=== PATIENT | female | born 1995 | race Caucasian/White ===

== ENCOUNTER → 2019-06-06 08:39 | Outpatient (CLI) | payer OTHER, SELFPAY ==
--- NOTE | 2019-06-06 08:41 | DI.US.S_ITS ---
PROCEDURE: US OB FOLLOW UP INDICATIONS: FOLLOW UP LEFT DILATED PELVIS OUTSIDE/PRIOR DATING DATA: Last menstrual period (LMP): 10/28/2018. LMP-based estimated date of delivery (JOSIANE): 08/04/2019. First dating scan (date and location): [facility]. Estimated date of delivery (JOSIANE) from first dating scan: 08/04/2019? TECHNIQUE: Real-time scanning was performed of the fetus, with image documentation and biometric measurements. COMPARISON: None available. FINDINGS: General: A single living intrauterine gestation is present. Presentation: Cephalic. Placenta: Placental position is anterior, without previa. Amniotic fluid index: 17.4 cm, normal range is 5-24 cm. Largest pocket 5.6 cm. heart rate: 153 beats per minute. Maternal cervical canal: Not well seen. Estimated gestational age from initial scan: 31 weeks 4 days. Composite gestational age from present scan: Not applicable. Measurement variability for biometric dating: +/- 7 days from 14 weeks to 15 weeks 6 days gestation, +/- 10 days from 16 weeks to 21 weeks 6 days gestation, +/- 2 weeks from 22 weeks to 27 weeks 6 days gestation, +/- 3 weeks for 28 weeks gestation or later. weight reference: 4500 g or EFW >90/95% is considered macrosomia or large for gestational age. EFW <10% is small for gestational age. EFW 5% or less is considered intra-uterine growth restriction. Other: Normal four-chamber heart view. The stomach is normal. Right kidney measures 4.3 cm. Right renal pelvis measurers 0.4 cm. Left kidney measures 4.1 cm. Left renal pelvis measurers 0.9 cm. Question of a trace right hydrocele. urinary bladder is unremarkable. IMPRESSION: 1. Reed living intrauterine at 31 weeks 4 days based on prior dating. 2. Normal placenta. Amniotic fluid within normal limits. 3. Left pelviectasis measuring 9 mm. Prior exams not available for comparison. Recommend renal ultrasound. 4. Question of a trace right hydrocele. This could also be followed postnatally. Dictated by: Brad Donahue M.D. on 06/06/2019 at 11:05 Approved by: Brad Donahue M.D. on 06/06/2019 at 11:22
== END ==
PROVIDERS: Referring Provider Obstetrics & Gynecology; Visit Provider Obstetrics & Gynecology
DX: O28.3 Abnormal ultrasonic finding on antenatal screening of mother (principal); N28.89 Other specified disorders of kidney and ureter; Z3A.31 31 weeks gestation of pregnancy
CPT/HCPCS: 76816

== ENCOUNTER 2019-06-24 08:53 | Inpatient (IN) | payer OTHER, SELFPAY ==
[2019-06-24 09:35] LABS: Add Manual Diff / Slide Review NO; Basophils Absolute Auto 0 /uL (0-100); Basophils Percent Auto 0.4 % (0-2); Eosinophils Absolute Auto 100 /uL (0-450); Eosinophils Percent Auto 1.3 % (2-4); Hematocrit 32.9 % (36-46); Hemoglobin 10.8 g/dL (12.0-16.0); Lymphocytes Absolute Auto 2500 /uL (1100-4500); Lymphocytes Percent Auto 26.2 % (25-40); Mean Corpuscular HGB Conc 32.7 % (30-36); Mean Corpuscular Hemoglobin 29.1 PG (26-34); Mean Corpuscular Volume 88.9 fL (80-100); Monocytes Absolute Auto 600 /uL (0-900); Monocytes Percent Auto 6.7 % (3-14); Neutrophils Absolute Auto 6200 /uL (1500-7000); Neutrophils Percent Auto 65.4 % (50-75); Platelet Count 181 X10^3/uL (150-400); Red Cell Distribution Width 14.4 % (11.6-14.8); White Blood Cell Count 9.5 X10^3/uL (4.5-11.0)
[2019-06-24 09:40] LABS: Appearance Urine UA CLEAR; Bilirubin Urine UA NEGATIVE (NEGATIVE); Color Urine UA YELLOW; Glucose Urine UA NEGATIVE (Negative); Ketones Urine UA NEGATIVE (NEGATIVE); Leukocyte Esterase Urine UA 2+ (NEGATIVE); Nitrite Urine UA NEGATIVE (Negative); Occult Blood Urine UA NEGATIVE (Negative); Protein Urine UA NEGATIVE (Negative); Urobilinogen Urine UA 0.2 E.U./dL (0.2)
[2019-06-24 09:52] LABS: Bacteria Urine Many (>30); Culture Indicated Urine Specimen Cultured; RBC Urine 0-1/HPF (0-5/HPF); Squamous Epithelial Cell Urine 1-5 /HPF (0-5/HPF); WBC Urine 5-10/HPF (0-5/HPF); pH Urine UA 6.5 (4.5-8.0)
[2019-06-24 09:54] LABS: Aspartate Aminotransferase 28 IU/L (14-36); Estimated Glomerular Filt Rate > 60.0 mL/min (>60)
[2019-06-24 10:01] LABS: Uric Acid 3.1 mg/dL (2.5-6.2)
[2019-06-24 10:05] LABS: Creatinine Urine Random 84.1 mg/dL; Protein (Total) Urine Random 14 mg/dL (0-12); Protein Creatinine Ratio Urine 0.16 GRAM/24H
[2019-06-24 10:09] LABS: BUN Creatinine Ratio 4.8 (6-22); Blood Urea Nitrogen < 2 mg/dL (7-17)
[2019-06-24] MEDS: NIFEdipine 10 MG CAPSULE PO ×4 (10:18→11:19)
[2019-06-24] MEDS: cephALEXin 250 MG CAPSULE 500 MG PO (11:46)
--- NOTE | 2019-06-24 13:11 | PM.OBHP.1 ---
OB HPI Date/Time Date of admission: 06/24/19 Date Patient Seen: 06/24/19 Time Patient Seen: 13:11 History of Present Condition Chief complaint: maternity : 1 Para: 0 Estimated Gestational Age (weeks): 34 Narrative: Mariella Lutz is a 23 year old @34+1 by 1st trimester ultrasound, admitted to labor and delivery in early labor and with new onset hypertension. The patient presented to clinic this morning for her scheduled visit reporting dramatically increased lower extremity swelling over the past several days, but denying LEO, visual changes, upper extremity or facial swelling, NEERAJ or abdominal pain, or any other complaints. She reported normal movement, denied contractions, VB, or LOF, and denied any other complaints obstetrical or otherwise. Her BPs were elevated at 132/90 on repeat checks, and she was transferred to labor and delivery. The patient transferred care from the [facility] to [facility] in her 31st week, but she and records indicate an obstetrically uncomplicated up to that point. ultrasound has indicated left sided pelviectasis, which was to be followed up . 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 History of Present care: good care Dating criteria: LMP confirmed by 1st trimester US Ultrasounds: abnormal US findings ( left renal pelviectasis, 9mm. ) Abnormal ultrasound findings: renal pelviectasis Obstetrical complications: none Medical complications: none Preadmission Labs Blood type: A (+) positive -: Antibody screen: negative, HBsAG: negative, HIV: negative and RPR/VDLR: negative -: Chlamydia screen: not detected and Gonorrhea screen: not detected -: Rubella: immune and Varicella: immune Sequential screen: negative 1 hr GTT: 134 Evaluation Evaluation Baseline heart rate: 135 Variability: Average (6-10) monitor accelerations: Present monitor decelerations: Absent Contraction Frequency (minutes): 3 Uterine Contraction Intensity: Moderate Category of Tracing: I Cervical dilation (cm): 2 Cervical effacement (%): 75 station: -3 Laboratory results: Laboratory Tests 06/24/19 06/24/19 06/24/19 09:15 09:15 09:25 WBC 9.5 RBC 3.70 L Hgb 10.8 L Hct 32.9 L MCV 88.9 MCH 29.1 MCHC 32.7 RDW 14.4 Plt Count 181 Neut % (Auto) 65.4 Lymph % (Auto) 26.2 [place] % (Auto) 6.7 Eos % (Auto) 1.3 L Baso % (Auto) 0.4 Neut # (Auto) 6200 Lymph # (Auto) 2500 [place] # (Auto) 600 Eos # (Auto) 100 Baso # (Auto) 0 BUN < 2 L Creatinine 0.42 L Estimated GFR > 60.0 BUN/Creatinine Ratio 4.8 L Uric Acid 3.1 AST 28 Urine Color Yellow Urine Appearance Clear Urine pH 6.5 Ur Specific [place] 1.020 Urine Protein Negative Urine Glucose (UA) Negative Urine Ketones Negative Urine Occult Blood Negative Urine Nitrate Negative Urine Bilirubin Negative Urine Urobilinogen 0.2 Ur Leukocyte Esterase 2+ H Urine RBC 0-1/hpf Urine WBC 5-10/hpf H Ur Squamous Epith Cells 1-5 /hpf Urine Bacteria Many (>30) H Ur Culture Indicated? Specimen cultured U Random Total Protein Urine Creatinine Protein/Creatinin Ratio 06/24/19 09:25 WBC RBC Hgb Hct MCV MCH MCHC RDW Plt Count Neut % (Auto) Lymph % (Auto) [place] % (Auto) Eos % (Auto) Baso % (Auto) Neut # (Auto) Lymph # (Auto) [place] # (Auto) Eos # (Auto) Baso # (Auto) BUN Creatinine Estimated GFR BUN/Creatinine Ratio Uric Acid AST Urine Color Urine Appearance Urine pH Ur Specific [place] Urine Protein Urine Glucose (UA) Urine Ketones Urine Occult Blood Urine Nitrate Urine Bilirubin Urine Urobilinogen Ur Leukocyte Esterase Urine RBC Urine WBC Ur Squamous Epith Cells Urine Bacteria Ur Culture Indicated? 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 Smoking Status: Never smoker second hand exposure: No substance use type: does not use (Denies 12/23/2018) Meds Home Medications and Allergies Home Medications Medication Instructions Recorded Confirmed Type loratadine 10 mg tablet 10 mg PO DAILY 06/03/19 06/03/19 History ondansetron HCl 4 mg tablet 4 mg PO Q8H 06/03/19 06/03/19 History prenat.vits,lisette,lqp-tebp-ojzsy 1 tab PO DAILY 06/03/19 06/03/19 History Allergies Allergy/AdvReac Type Severity Reaction Status Date / Time No Known Drug Allergies Allergy Verified 06/03/19 11:46 Review of Systems Constitutional Constitutional: Reports system reviewed and no additional complaints, except as documented Cardiovascular Cardiovascular: Reports system reviewed; no additional complaints, except as documented Respiratory Respiratory: Reports system reviewed and no additional complaints, except as documented Gastrointestinal Gastrointestinal: Reports system reviewed and no additional complaints, except as documented Genitourinary Genitourinary: Reports system reviewed and no additional complaints, except as documented Neurologic Neurologic: Reports system reviewed and no additional complaints, except as documented Hematologic/Lymphatic Hematologic/Lymphatic: Reports system reviewed and no additional complaints, except as documented Exam Vital Signs (past 8 hours): 139/94, HR 72, T 36.4 Const General: cooperative, healthy appearing, comfortable and well developed Resp Effort & Inspection: normal respiratory effort Auscultation: clear to auscultation bilaterally Cardio Rate: regular rate Rhythm: regular rhythm GI Palpation: soft and No tender External Female Exam: external appearance normal Skin General: no rashes or lesions noted Neuro General: alert, awake and oriented x3 Cranial Nerves: CN's II-XI intact bilaterally Extrem General: normal to inspection Objective Labs Result Diagrams: 06/24/19 09:15 06/24/19 09:15 Labs: Laboratory Results - last 24 hr 06/24/19 06/24/19 06/24/19 09:15 09:15 09:25 WBC 9.5 RBC 3.70 L Hgb 10.8 L Hct 32.9 L MCV 88.9 MCH 29.1 MCHC 32.7 RDW 14.4 Plt Count 181 Neut % (Auto) 65.4 Lymph % (Auto) 26.2 [place] % (Auto) 6.7 Eos % (Auto) 1.3 L Baso % (Auto) 0.4 Neut # (Auto) 6200 Lymph # (Auto) 2500 [place] # (Auto) 600 Eos # (Auto) 100 Baso # (Auto) 0 BUN < 2 L Creatinine 0.42 L Estimated GFR > 60.0 BUN/Creatinine Ratio 4.8 L Uric Acid 3.1 AST 28 Urine Color Yellow Urine Appearance Clear Urine pH 6.5 Ur Specific [place] 1.020 Urine Protein Negative Urine Glucose (UA) Negative Urine Ketones Negative Urine Occult Blood Negative Urine Nitrate Negative Urine Bilirubin Negative Urine Urobilinogen 0.2 Ur Leukocyte Esterase 2+ H Urine RBC 0-1/hpf Urine WBC 5-10/hpf H Ur Squamous Epith Cells 1-5 /hpf Urine Bacteria Many (>30) H Ur Culture Indicated? Specimen cultured U Random Total Protein Urine Creatinine Protein/Creatinin Ratio 06/24/19 09:25 WBC RBC Hgb Hct MCV MCH MCHC RDW Plt Count Neut % (Auto) Lymph % (Auto) [place] % (Auto) Eos % (Auto) Baso % (Auto) Neut # (Auto) Lymph # (Auto) [place] # (Auto) Eos # (Auto) Baso # (Auto) BUN Creatinine Estimated GFR BUN/Creatinine Ratio Uric Acid AST Urine Color Urine Appearance Urine pH Ur Specific [place] Urine Protein Urine Glucose (UA) Urine Ketones Urine Occult Blood Urine Nitrate Urine Bilirubin Urine Urobilinogen Ur Leukocyte Esterase Urine RBC Urine WBC Ur Squamous Epith Cells Urine Bacteria Ur Culture Indicated? U Random Total Protein 14 H Urine Creatinine 84.1 Protein/Creatinin Ratio 0.16 Assessment and Plan Assessment and Plan Assessment and Plan narrative: This patient is admitted to labor and delivery with new onset hypertension and labor. On admission to L&D, she was found to be asymptomatically jenn q1-2 with an SVE 1/long/high at that time, with BPs 140s-150s/90s. PIH labs were within normal limits except for evidence of UTI. The patient was given PO hydration and 10mg PO nifedipine q 20 minutes x4 doses for contractions, and contractions stopped transiently and then resumed q2-3. Blood pressure initially normalized, but returned to 140s-150s/90s with resumption of contractions, and a repeat SVE was 2.5/75/-3 with a palpable bulging bag. status is reassuring and the patient remains asymptomatic, and will be prepared for expeditious transfer to the [facility] L&D for NICU access. - IVF @ 75ccs/hr - cEFM, toco until time of ground transfer - 12mg IM betamethasone administered - GBS PCR pending - Patient s/p 40mg PO nifedipine, as well as 500mg PO Keflex
[2019-06-24] MEDS: BETAMETHASONE 30 MG/5 ML MDV 12 MG IM (13:28)
[2019-06-24 14:25] LABS: Strep Grp B PCR POS for Grp B Strep
[2019-06-24] MEDS: LACTATED RINGERS 1,000 ML 150 ML IV (14:31)
[2019-06-24 14:59] VITALS: BP 145/96
== END 2019-06-24 15:00 | disposition home or self-care (01) | DRG 832 ==
PROVIDERS: Admitting Provider Obstetrics & Gynecology; Referring Provider Obstetrics & Gynecology; Visit Provider Obstetrics & Gynecology
DX: O60.03 Preterm labor without delivery, third trimester (principal); O16.3 Unspecified maternal hypertension, third trimester; R93.89 Abnormal findings on diagnostic imaging of other specified body structures
CPT/HCPCS: 36415; 59025; 59050; 76815; 81001; 82570; 84112; 84156; 84450; 84550; 85025; 87086; 87653; 96360; 96372; G0378; G0379; J0702

== ENCOUNTER → 2021-08-22 12:08 | Outpatient (CLI) | payer OTHER, SELFPAY ==
[2021-08-22 13:08] LABS: Influenza A - CEPHEID Flu A NEGATIVE (NEGATIVE); Influenza B - CEPHEID Flu B NEGATIVE (NEGATIVE)
[2021-08-22 13:17] LABS: COVID-19 CEPHEID PCR (VTM/NP) Negative (Negative)
== END ==
PROVIDERS: PCP Physician Assistant; Visit Provider Physician Assistant
DX: R11.10 Vomiting, unspecified (principal)
CPT/HCPCS: 0240U

== ENCOUNTER → 2021-12-09 14:00 | Outpatient (CLI) | payer OTHER, SELFPAY ==
--- NOTE | 2021-12-09 14:01 | DI.US.S_ITS ---
PROCEDURE: US OB >= 14 WEEKS FETUS INDICATIONS: Dating and possible anatomy OUTSIDE/PRIOR DATING DATA: Last menstrual period (LMP): Not of a. LMP-based estimated date of delivery (JOSIANE): Nodular. First dating scan (date and location): 12/09/2021; [facility]. Estimated date of delivery (JOSIANE) from first dating scan: 04/06/2022. TECHNIQUE: Real-time scanning was performed of the fetus, with image documentation and biometric measurements. Endovaginal scanning: Not performed. COMPARISON: None. FINDINGS: General: A single living intrauterine gestation is present. Presentation: breech. Placenta: Placental position is anterior , without previa. Amniotic fluid index: 15.8 cm, normal range is 5-24 cm. Single deepest vertical pocket is 4.3 cm. heart rate: 152 beats per minute. Maternal cervical canal: 3 point cm long. Normal lower limit is 2.5 cm. biometrics: Biparietal diameter: 22 weeks 4 days Head circumference: 23 weeks 2 days Abdominal circumference: 23 weeks 4 days Femur length: 22 weeks 3 days Clinically estimated gestational age: Not available. Composite gestational age from present scan: 23 weeks 1 day Estimated weight and percentile: 580 g; percentile not available. Anatomic survey: Neuro: Ventricles are non-dilated at less than 10 mm. Cisterna magna is normal at 3-11 mm. Cerebellum is normal in size and morphology. Nuchal skin fold: Normal at less than 6 mm between 14-21 weeks gestational age. Face: Nose and lips, facial profile are normal. Spine: No evidence for spina bifida. Heart: 4-chambered heart is present, with normal ventricular outflow tracts. Diaphragm: Diaphragm is intact. Stomach: Left-sided stomach is present. Kidneys: No hydronephrosis. Normal is less than 5 mm in 2nd trimester, less than 7 mm in 3rd trimester. Cord: 3-vessel cord has orthotopic insertion. Bladder: Normal in size. Extremities: All 4 extremities identified. IMPRESSION: 1. A single living intrauterine gestation with an estimated gestational age of 23 weeks 1 day corresponding to an estimated JOSIANE 04/06/2022. 2. Normal anatomic survey. We strive to produce accurate, complete, and clear reports of imaging services. To assist us in improving patient care, this report was composed using standard report templates and voice recognition software. Therefore, it may contain abnormal punctuation, insertions and/or omissions. Occasional wrong-word or sound-alike substitutions may occur. Though we review the report and make efforts to correct it, we do recommend that the report be read carefully in proper context to recognize any text inaccuracies. Dictated by: Gladis Andrews M.D. on 12/09/2021 at 17:34 Approved by: Gladis Andrews M.D. on 12/09/2021 at 18:58
== END ==
PROVIDERS: Referring Provider Obstetrics & Gynecology; Visit Provider Obstetrics & Gynecology
DX: Z34.82 Encounter for supervision of other normal pregnancy, second trimester (principal); Z3A.23 23 weeks gestation of pregnancy
CPT/HCPCS: 76811

== ENCOUNTER → 2021-12-24 15:54 | Outpatient (CLI) | payer OTHER, SELFPAY ==
[2021-12-24 22:08] LABS: Urine N gonorrhoeae NOT DETECTED
[2021-12-24 22:25] LABS: Urine Chlamydia NOT DETECTED
== END ==
PROVIDERS: Visit Provider Obstetrics & Gynecology
DX: Z34.82 Encounter for supervision of other normal pregnancy, second trimester (principal); Z3A.24 24 weeks gestation of pregnancy
CPT/HCPCS: 87491; 87591

== ENCOUNTER → 2021-12-30 16:13 | Outpatient (CLI) | payer OTHER, SELFPAY ==
[2021-12-30 18:29] LABS: Add Manual Diff / Slide Review NO; Basophils Absolute Auto 0 /uL (0-100); Basophils Percent Auto 0.2 % (0-2); Eosinophils Absolute Auto 0 /uL (0-450); Eosinophils Percent Auto 0.4 % (2-4); Hematocrit 32.2 % (36-46); Lymphocytes Absolute Auto 2300 /uL (1100-4500); Lymphocytes Percent Auto 21.4 % (25-40); Mean Corpuscular HGB Conc 34.1 % (30-36); Mean Corpuscular Hemoglobin 28.8 PG (26-34); Mean Corpuscular Volume 84.4 fL (80-100); Monocytes Absolute Auto 600 /uL (0-900); Monocytes Percent Auto 5.1 % (3-14); Neutrophils Absolute Auto 7900 /uL (1500-7000); Neutrophils Percent Auto 72.9 % (50-75); Platelet Count 249 X10^3/uL (150-400); Red Blood Cell Count 3.81 X10^6/uL (4.0-5.2); Red Cell Distribution Width 14.6 % (11.6-14.8); White Blood Cell Count 10.9 X10^3/uL (4.5-11.0)
[2021-12-30 18:58] LABS: Appearance Urine UA CLEAR; Bilirubin Urine UA NEGATIVE (NEGATIVE); Color Urine UA YELLOW; Glucose Urine UA NEGATIVE (Negative); Ketones Urine UA 1+ (NEGATIVE); Leukocyte Esterase Urine UA TRACE (NEGATIVE); Nitrite Urine UA NEGATIVE (Negative); Occult Blood Urine UA NEGATIVE (Negative); Protein Urine UA TRACE (Negative); Specific Gravity Urine UA 1.015 (1.000-1.035); Urobilinogen Urine UA 0.2 E.U./dL (0.2)
[2021-12-30 19:10] LABS: Bacteria Urine Moderate (10-30); RBC Urine None Seen (0-5/HPF); Squamous Epithelial Cell Urine 10-30 /HPF (0-5/HPF); WBC Urine 5-10/HPF (0-5/HPF)
[2021-12-30 20:11] LABS: HIV 1 & 2 Ab/Ag 4th Gen Combo NEGATIVE (NEGATIVE); Hep C Virus Ab w/Reflex Quant NEGATIVE s/c (NEGATIVE); Hepatitis B Surface Antigen NEGATIVE s/c (NEGATIVE); Rubella Antibody IgG 56.5 IU/mL (>15)
[2022-01-01 05:33] LABS: RPR Screen Non Reactive (Non Reactive)
[2022-01-01 09:09] LABS: Varicella IgG Antibody 978 index (Immune >165)
== END ==
PROVIDERS: Referring Provider Obstetrics & Gynecology; Visit Provider Obstetrics & Gynecology
DX: Z34.82 Encounter for supervision of other normal pregnancy, second trimester (principal)
CPT/HCPCS: 36415; 80055; 81003; 81015; 86787; 86803; 86850; 86900; 86901; 87086; 87389

== ENCOUNTER → 2022-01-10 15:36 | Outpatient (CLI) | payer OTHER, SELFPAY ==
[2022-01-10 17:33] LABS: Hematocrit 31.8 % (36-46); Hemoglobin 10.5 g/dL (12.0-16.0)
[2022-01-10 17:47] LABS: Alanine Aminotransferase 17 IU/L (<35); Albumin 3.7 g/dL (3.5-5.0); Alkaline Phosphatase 110 U/L (38-126); Aspartate Aminotransferase 23 IU/L (14-36); Bilirubin Total 1.3 mg/dL (0.2-1.3); Bilirubin Unconjugated 1.3 mg/dL (0.0-1.1); GTT (PREG) 1 Hour PP 50gm Dose 102 mg/dL (76-139); Globulin 3.6 g/dL (1.7-4.1); HEMOLYSIS < 15 (0-50); Total Protein 7.3 g/dL (6.3-8.2); Uric Acid 3.3 mg/dL (2.5-6.2)
[2022-01-10 17:50] LABS: Protein (Total) Urine Random < 5 mg/dL (0-12); Protein Creatinine Ratio Urine 0.02 GRAM/24H
== END ==
PROVIDERS: Referring Provider Obstetrics & Gynecology; Visit Provider Obstetrics & Gynecology
DX: O09.299 Supervision of pregnancy with other poor reproductive or obstetric history, unspecified trimester (principal); Z3A.26 26 weeks gestation of pregnancy
CPT/HCPCS: 36415; 80076; 82570; 82950; 84156; 84550; 85014; 85018

== ENCOUNTER 2022-01-28 19:14 | Observation (INO) | payer OTHER, SELFPAY ==
--- NOTE | 2022-01-28 19:49 | DI.US.S_ITS ---
PROCEDURE: US OB LIMITED INDICATIONS: PTL OUTSIDE/PRIOR DATING DATA: Last menstrual period (LMP): Unknown. First dating scan (date and location): 12/09/2021. Estimated date of delivery (JOSIANE) from first dating scan: 04/06/2022. The calculations are made using the ultrasound JOSIANE of 04/06/2022. TECHNIQUE: Real-time scanning was performed of the fetus, with image documentation and biometric measurements. COMPARISON: , US, OB >= 14 WEEKS FETUS, 12/09/2021, 14:14. FINDINGS: General: A single living intrauterine gestation is present. Presentation: Vertex. Placenta: Placental position is anterior , without previa. Amniotic fluid index: 17.7 cm, normal range is 5-24 cm. Single deepest vertical pocket is 7.1 cm. heart rate: 155 beats per minute. Maternal cervical canal: 4.2 cm long. Normal lower limit is 2.5 cm. No endocervical fluid or evidence of funneling. biometrics: Biparietal diameter: 7.2 cm, 29 weeks 0 days Head circumference: 28.0 cm, 30 weeks 5 days Abdominal circumference: 27.1 cm, 31 weeks 2 days Femur length: 5.9 cm, 30 weeks 6 days Clinically estimated gestational age: 30 weeks 2 days Composite gestational age from present scan: 30 weeks 3 days Estimated weight and percentile: 1659 g, 59th percentile IMPRESSION: 1. Single living intrauterine demonstrating appropriate interval growth with estimated weight at the 59th percentile. 2. Cervix appears closed and normal in length without evidence of endocervical fluid or funneling. We strive to produce accurate, complete, and clear reports of imaging services. To assist us in improving patient care, this report was composed using standard report templates and voice recognition software. Therefore, it may contain abnormal punctuation, insertions and/or omissions. Occasional wrong-word or sound-alike substitutions may occur. Though we review the report and make efforts to correct it, we do recommend that the report be read carefully in proper context to recognize any text inaccuracies. Dictated by: Manish Duran M.D. on 01/28/2022 at 22:52 Approved by: Manish Duran M.D. on 01/28/2022 at 22:55
[2022-01-28] MEDS: NIFEdipine 30 MG TAB ER PO (20:47)
[2022-01-28] MEDS: LACTATED RINGERS 1,000 ML 1000 ML IV (20:47)
[2022-01-28] MEDS: NIFEdipine 10 MG CAPSULE PO ×3 (20:47→21:36)
[2022-01-28 20:51] LABS: Appearance Urine UA CLEAR; Bilirubin Urine UA NEGATIVE (NEGATIVE); Color Urine UA YELLOW; Glucose Urine UA TRACE g/dL (Negative); Ketones Urine UA 3+ (NEGATIVE); Leukocyte Esterase Urine UA NEGATIVE (NEGATIVE); Nitrite Urine UA NEGATIVE (Negative); Occult Blood Urine UA NEGATIVE (Negative); Protein Urine UA 2+ (Negative); Urobilinogen Urine UA 0.2 E.U./dL (0.2)
[2022-01-28 20:53] LABS: pH Urine UA 6.5 (4.5-8.0)
[2022-01-28 21:03] VITALS: BP 118/64
[2022-01-28 21:08] LABS: Bacteria Urine Moderate (10-30); Culture Indicated Urine Specimen Cultured; Mucus Urine 2+ (Negative); RBC Urine 1-5/HPF (0-5/HPF); Squamous Epithelial Cell Urine 5-10 /HPF (0-5/HPF); WBC Urine 1-5/HPF (0-5/HPF)
[2022-01-28] MEDS: CALCIUM CARBONATE 500 MG TAB 1000 MG PO (21:12)
== END 2022-01-28 22:30 | disposition home or self-care (01) ==
PROVIDERS: Admitting Provider Obstetrics & Gynecology; Referring Provider Obstetrics & Gynecology; Visit Provider Obstetrics & Gynecology
DX: O60.03 Preterm labor without delivery, third trimester (principal); Z3A.30 30 weeks gestation of pregnancy
CPT/HCPCS: 59025; 59050; 76815; 81001; 87086; 96360; G0378; G0379

== ENCOUNTER 2022-02-01 20:53 | Outpatient (CLI) | payer OTHER, SELFPAY ==
[2022-02-01] MEDS: ACETAMINOPHEN 325 MG TABLET 1000 MG PO (21:16)
--- NOTE | 2022-02-23 22:05 | PM.OBTRLD ---
Visit Information Visit Information Date of evaluation: 02/01/22 Primary OB Provider: Lazaro Wills On-call OB Provider: Stacia Liu Reason for Evaluation: Yes non-stress test non-stress test reason: decreased movement [facility] Medical History (Updated 02/12/22 @ 15:53 by Lazaro Wills MD) PCOS (polycystic ovarian syndrome) (~2009) Surgical History (Updated 12/31/21 @ 07:53 by Lazaro Wills MD) [place] teeth extracted Family History (Updated 12/19/21 @ 15:50 by Katia Galdamez RN) Grandfather Diabetes mellitus Grandmother Diabetes mellitus Mother Myocardial infarction Hypoglycemia Family/Other Breast cancer Social History marital status: number of children: 1 household members: spouse and children lives independently: Yes housing: house pets and animals: Yes (2 dogs) education level: college (some college) 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: No 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 travel history: recent (domestic only) seatbelt use: always water heater temp set < 120 deg: Yes working smoke detector in home: Yes fire extinguisher in home: Yes carbon monox detector in home: Yes firearms in home: Yes firearms unloaded and locked: Yes do you feel safe at home: Yes Smoking Status: Never smoker second hand exposure: No alcohol intake: former (rarely when not ) substance use type: does not use during the past year weight has: remained stable well-balanced diet: rarely or never daily servings fruits/ve-1 caffeine: Yes (aware of 200mg limit) Type(s) of exercise: none Evaluation Evaluation Baseline heart rate: 140 Variability: Moderate (11-25) monitor accelerations: Present Monitor Decelerations: Absent Category of Tracing: Reactive Diagnosis, Plan/Disposition Plan/Disposition Plan: Assessment: 26-year-old 2 para 1 at 30-,6/7 weeks gestation with decreased movement Reactive nonstress test Plan: Discharge to home kick counts discussed Follow-up as scheduled OB Disposition: home
== END 2022-02-01 21:45 | disposition home or self-care (01) ==
LOC: OB 02-06 16:07
PROVIDERS: Referring Provider Obstetrics & Gynecology; Visit Provider Obstetrics & Gynecology
DX: O36.8130 Decreased fetal movements, third trimester, not applicable or unspecified (principal); Z3A.30 30 weeks gestation of pregnancy
CPT/HCPCS: 59025; G0378; G0379

== ENCOUNTER → 2022-02-26 16:43 | Outpatient (CLI) | payer OTHER, SELFPAY ==
[2022-02-26 17:19] LABS: Add Manual Diff / Slide Review NO; Basophils Absolute Auto 0 /uL (0-100); Basophils Percent Auto 0.4 % (0-2); Eosinophils Absolute Auto 0 /uL (0-450); Eosinophils Percent Auto 0.4 % (2-4); Hematocrit 31.8 % (36-46); Hemoglobin 10.3 g/dL (12.0-16.0); Lymphocytes Absolute Auto 1800 /uL (1100-4500); Lymphocytes Percent Auto 17.1 % (25-40); Mean Corpuscular HGB Conc 32.4 % (30-36); Mean Corpuscular Hemoglobin 25.8 PG (26-34); Mean Corpuscular Volume 79.9 fL (80-100); Monocytes Absolute Auto 800 /uL (0-900); Monocytes Percent Auto 7.5 % (3-14); Neutrophils Absolute Auto 8000 /uL (1500-7000); Neutrophils Percent Auto 74.6 % (50-75); Platelet Count 263 X10^3/uL (150-400); Red Blood Cell Count 3.98 X10^6/uL (4.0-5.2); White Blood Cell Count 10.7 X10^3/uL (4.5-11.0)
[2022-02-26 17:40] LABS: Creatinine Urine Random 194.1 mg/dL; Protein (Total) Urine Random 22 mg/dL (0-12); Protein Creatinine Ratio Urine 0.11 GRAM/24H
[2022-02-26 17:56] LABS: Alanine Aminotransferase 18 IU/L (<35); Albumin 3.5 g/dL (3.5-5.0); Alkaline Phosphatase 160 U/L (38-126); Aspartate Aminotransferase 21 IU/L (14-36); Bilirubin Total 1.4 mg/dL (0.2-1.3); Bilirubin Unconjugated 1.1 mg/dL (0.0-1.1); Globulin 3.4 g/dL (1.7-4.1); HEMOLYSIS < 15 (0-50); Total Protein 6.9 g/dL (6.3-8.2); Uric Acid 2.8 mg/dL (2.5-6.2)
== END ==
PROVIDERS: Referring Provider Obstetrics & Gynecology; Visit Provider Obstetrics & Gynecology
DX: O09.299 Supervision of pregnancy with other poor reproductive or obstetric history, unspecified trimester (principal)
CPT/HCPCS: 36415; 80076; 82570; 84156; 84550; 85025

== ENCOUNTER 2022-02-26 16:45 | Observation (INO) | payer OTHER, SELFPAY ==
[2022-02-26] MEDS: NIFEdipine 30 MG TAB ER PO (18:15)
--- NOTE | 2022-02-27 07:42 | P.TNLD_ITS ---
Visit Information Visit Information Date of evaluation: 02/26/22 Primary OB Provider: Lazaro Wills Reason for Evaluation: Yes non-stress test Comments/Additional reasons for admission: 26 yo at 34+3 wks EGA Vital Signs Vital Signs: BP: 115/71 P: 107 T: 36.9C PFSH Medical History (Updated 02/12/22 @ 15:53 by Lazaro Wills MD) PCOS (polycystic ovarian syndrome) (~2009) Surgical History (Updated 12/31/21 @ 07:53 by Lazaro Wills MD) [place] teeth extracted Family History (Updated 12/19/21 @ 15:50 by Katia Galdamez RN) Grandfather Diabetes mellitus Grandmother Diabetes mellitus Mother Myocardial infarction Hypoglycemia Family/Other Breast cancer Social History marital status: number of children: 1 household members: spouse and children lives independently: Yes housing: house pets and animals: Yes (2 dogs) education level: college (some college) 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: No 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 travel history: recent (domestic only) seatbelt use: always water heater temp set < 120 deg: Yes working smoke detector in home: Yes fire extinguisher in home: Yes carbon monox detector in home: Yes firearms in home: Yes firearms unloaded and locked: Yes do you feel safe at home: Yes Smoking Status: Never smoker second hand exposure: No alcohol intake: former (rarely when not ) substance use type: does not use during the past year weight has: remained stable well-balanced diet: rarely or never daily servings fruits/ve-1 caffeine: Yes (aware of 200mg limit) Type(s) of exercise: none Review of Systems Review of Systems Narrative: Problem-specific ROS positives included in HPI Evaluation Evaluation Baseline heart rate: 140 Variability: Average (6-10) monitor accelerations: Present Monitor Decelerations: Absent Contraction Frequency (minutes): 3 Uterine Contraction Intensity: Mild Category of Tracing: Reactive Status: Category l Cervical dilation (cm): 0 Cervical effacement (%): 50 station: -3 Diagnosis, Plan/Disposition Plan/Disposition Plan: All labs normal/negative. Patient will be placed at [facility], note to employer provided Close observation for elevated BP, sign/symptoms of elevated BP reviewed Continue daily and PRN nifedipine for uterine irritability Follow-up for [facility] visit in 1 wk or as needed OB Disposition: home
== END 2022-02-26 18:18 | disposition home or self-care (01) ==
LOC: LABOR 16:46
PROVIDERS: Admitting Provider Obstetrics & Gynecology; Referring Provider Obstetrics & Gynecology; Visit Provider Obstetrics & Gynecology
DX: O16.3 Unspecified maternal hypertension, third trimester (principal); Z3A.34 34 weeks gestation of pregnancy
CPT/HCPCS: 36415; 59025; 80076; 82570; 84156; 84550; 85025; G0378; G0379

== ENCOUNTER → 2022-03-07 16:38 | Outpatient (CLI) | payer OTHER, SELFPAY ==
[2022-03-08 15:31] LABS: Strep Grp B PCR POS for Grp B Strep
== END ==
PROVIDERS: Visit Provider Obstetrics & Gynecology
DX: Z36.85 Encounter for antenatal screening for Streptococcus B (principal); Z3A.35 35 weeks gestation of pregnancy
CPT/HCPCS: 87653

== ENCOUNTER → 2022-03-14 17:05 | Outpatient (CLI) | payer OTHER, SELFPAY ==
[2022-03-14 18:01] LABS: Add Manual Diff / Slide Review NO; Basophils Absolute Auto 0 /uL (0-100); Basophils Percent Auto 0.2 % (0-2); Eosinophils Absolute Auto 0 /uL (0-450); Eosinophils Percent Auto 0.4 % (2-4); Hematocrit 29.4 % (36-46); Hemoglobin 9.5 g/dL (12.0-16.0); Lymphocytes Absolute Auto 2100 /uL (1100-4500); Lymphocytes Percent Auto 18.2 % (25-40); Mean Corpuscular HGB Conc 32.3 % (30-36); Mean Corpuscular Hemoglobin 25.2 PG (26-34); Mean Corpuscular Volume 78.1 fL (80-100); Monocytes Absolute Auto 600 /uL (0-900); Monocytes Percent Auto 5.4 % (3-14); Neutrophils Absolute Auto 8800 /uL (1500-7000); Neutrophils Percent Auto 75.8 % (50-75); Platelet Count 200 X10^3/uL (150-400); Red Blood Cell Count 3.76 X10^6/uL (4.0-5.2); Red Cell Distribution Width 17.3 % (11.6-14.8); White Blood Cell Count 11.6 X10^3/uL (4.5-11.0)
[2022-03-14 19:28] LABS: Alanine Aminotransferase 17 IU/L (<35); Albumin 3.2 g/dL (3.5-5.0); Alkaline Phosphatase 183 U/L (38-126); Aspartate Aminotransferase 21 IU/L (14-36); BUN Creatinine Ratio 11.4 (6-22); Bilirubin Total 1.5 mg/dL (0.2-1.3); Blood Urea Nitrogen 5 mg/dL (7-17); Calcium 8.8 mg/dL (8.4-10.2); Carbon Dioxide 22 mmol/L (22-32); Chloride 102 mmol/L (98-107); Estimated Glomerular Filt Rate > 60 mL/min (>60); Globulin 3.1 g/dL (1.7-4.1); Glucose 81 mg/dL (70-100); HEMOLYSIS < 15 (0-50); Potassium 4.2 mmol/L (3.4-5.1); Sodium 133 mmol/L (137-145); Total Protein 6.3 g/dL (6.3-8.2); Uric Acid 3.2 mg/dL (2.5-6.2)
== END ==
PROVIDERS: Referring Provider Obstetrics & Gynecology; Visit Provider Obstetrics & Gynecology
DX: O09.299 Supervision of pregnancy with other poor reproductive or obstetric history, unspecified trimester (principal)
CPT/HCPCS: 36415; 80053; 84550; 85025

== ENCOUNTER 2022-03-16 18:44 | Outpatient (CLI) | payer OTHER, SELFPAY ==
[2022-03-16 20:07] LABS: Creatinine Urine Random 142.5 mg/dL; Protein (Total) Urine Random 34 mg/dL (0-12); Protein Creatinine Ratio Urine 0.23 GRAM/24H
== END 2022-03-16 20:33 | disposition home or self-care (01) ==
LOC: LABOR 18:49 → OB 03-17 10:37
PROVIDERS: Obstetrics & Gynecology; Referring Provider Obstetrics & Gynecology; Visit Provider Obstetrics & Gynecology
DX: O26.893 Other specified pregnancy related conditions, third trimester (principal); R03.0 Elevated blood-pressure reading, without diagnosis of hypertension; Z3A.37 37 weeks gestation of pregnancy
CPT/HCPCS: 59025; 82570; 84156; G0378; G0379

== ENCOUNTER 2022-03-19 14:59 | Inpatient (IN) | payer OTHER, SELFPAY ==
[2022-03-19] MEDS: LACTATED RINGERS 1,000 ML 999 ML IV (15:45)
--- NOTE | 2022-03-19 15:52 | PM.OBHP.1 ---
OB HPI Date/Time Date of admission: 03/19/22 Date Patient Seen: 03/19/22 Time Patient Seen: 16:30 History of Present Condition Chief complaint: IUP, 37+3 wks EGA, Prior , SROM : 2 Para: 1 Estimated Date of Delivery: 04/06/22 Estimated Gestational Age (weeks): 37+3 Narrative: Mariella Lutz is a 26 year old admitted now at 37+3 for repeat section with SROM occurring earlier today. course has been generally unremarkable with solid dating and appropriate milestones throughout. Patient has a history of preeclampsia with her 1st but up until now her blood pressures have been minimally elevated and her PIH/PEC labs have been negative. GBS is positive. Indications Operative indications ( section): previous uterine surgery History of Present care: good care Dating criteria: LMP confirmed by 1st trimester US Obstetrical complications: none Medical complications: none Preadmission Labs Blood type: A (+) positive -: Antibody screen: negative, GBS status: negative, HBsAG: negative, HIV: negative and RPR/VDLR: negative -: Chlamydia screen: not detected and Gonorrhea screen: not detected -: Rubella: immune and Varicella: immune HCT: 29.4 HCAB: negative PAP: Normal Quad screen: Normal 1 hr GTT: 102 Prior (ies) History: CS x 1 PFSH Medical History (Updated 03/14/22 @ 17:15 by Lazaro Wills MD) PCOS (polycystic ovarian syndrome) (~2009) Surgical History (Updated 12/31/21 @ 07:53 by Lazaro Wills MD) [place] teeth extracted Family History (Updated 12/19/21 @ 15:50 by Katia Galdamez RN) Grandfather Diabetes mellitus Grandmother Diabetes mellitus Mother Myocardial infarction Hypoglycemia Family/Other Breast cancer Social History marital status: number of children: 1 household members: spouse and children lives independently: Yes housing: house pets and animals: Yes (2 dogs) education level: college (some college) 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 travel history: recent (domestic only) seatbelt use: always water heater temp set < 120 deg: Yes working smoke detector in home: Yes fire extinguisher in home: Yes carbon monox detector in home: Yes firearms in home: Yes firearms unloaded and locked: Yes do you feel safe at home: Yes Smoking Status: Never smoker second hand exposure: No alcohol intake: former (rarely when not ) substance use type: does not use during the past year weight has: remained stable well-balanced diet: rarely or never daily servings fruits/ve-1 caffeine: Yes (aware of 200mg limit) Type(s) of exercise: none Meds Home Medications and Allergies Home Medications Medication Instructions Recorded Confirmed Type Double Electric breast Pump and #1 ea 07/07/19 03/19/22 Rx Supplies Allergies Allergy/AdvReac Type Severity Reaction Status Date / Time No Known Drug Allergies Allergy Verified 03/14/22 16:17 OB Exam Vital signs Blood Pressure: 134/91 Pulse Rate: 115 Temperature: 36.8 F HENMT Head: normal to inspection, normocephalic and atraumatic Eyes General: appearance normal, both eyes and all related structures Resp Effort & Inspection: normal respiratory effort and able to speak in complete sentences Auscultation: clear to auscultation bilaterally Cardio Rate: regular rate Rhythm: regular rhythm Heart Sounds: S1 normal, S2 normal and no murmurs Extremities Lower extremity: Yes normal to inspection GI Inspection: normal to inspection Palpation: Yes soft and Yes no hepatosplenomegaly Uterus Location (Fundal Height): 37 Presentation: vertex Estimated Weight (lbs): 7 Objective Labs 03/19/22 15:44 03/19/22 15:44 Assessment and Plan Assessment and Plan Assessment and Plan narrative: ASSESSMENT 1. Intrauterine , 37+ 3 weeks gestational age 2. Prior section x1 3. Spontaneous rupture membranes 4. GBS positive status 5. Preeclampsia without severe features PLAN 1. Admit for emergent repeat section 2. See admission orders
[2022-03-19 16:00] VITALS: BP 134/91; PULSE 115; TEMP 2.7; TEMP 36.8
[2022-03-19 16:07] LABS: Add Manual Diff / Slide Review NO; Basophils Absolute Auto 100 /uL (0-100); Basophils Percent Auto 0.5 % (0-2); Eosinophils Absolute Auto 0 /uL (0-450); Eosinophils Percent Auto 0.3 % (2-4); Hematocrit 34.1 % (36-46); Hemoglobin 10.7 g/dL (12.0-16.0); Lymphocytes Absolute Auto 2100 /uL (1100-4500); Lymphocytes Percent Auto 17.8 % (25-40); Mean Corpuscular HGB Conc 31.5 % (30-36); Mean Corpuscular Hemoglobin 24.7 PG (26-34); Mean Corpuscular Volume 78.6 fL (80-100); Monocytes Absolute Auto 800 /uL (0-900); Monocytes Percent Auto 6.5 % (3-14); Neutrophils Absolute Auto 8900 /uL (1500-7000); Neutrophils Percent Auto 74.9 % (50-75); Platelet Count 261 X10^3/uL (150-400); Red Blood Cell Count 4.34 X10^6/uL (4.0-5.2); Red Cell Distribution Width 17.4 % (11.6-14.8); White Blood Cell Count 11.9 X10^3/uL (4.5-11.0)
[2022-03-19] MEDS: CEFAZOLIN 2 GM/100 ML PREMIX 100 ML IV (16:07)
[2022-03-19 16:20] LABS: COVID19 -Nasal RAPID Negative (Negative)
[2022-03-19 16:24] LABS: Aspartate Aminotransferase 26 IU/L (14-36); BUN Creatinine Ratio 11.8 (6-22); Blood Urea Nitrogen 6 mg/dL (7-17); Estimated Glomerular Filt Rate > 60 mL/min (>60); Uric Acid 3.7 mg/dL (2.5-6.2)
[2022-03-19 16:29] LABS: Creatinine Urine Random 89.7 mg/dL; Protein (Total) Urine Random 73 mg/dL (0-12); Protein Creatinine Ratio Urine 0.81 GRAM/24H
--- NOTE | 2022-03-19 17:38 | PM.PREOP ---
Pre-operative Note COVID-19 COVID-19 status: Negative Result date/Date tested (Pos, Neg/Pending): 03/19/22 Criteria for continued procedure: Non-surgical alternatives not available or appropriate per current SOC Interval Note History & Physical reviewed/Exam performed by Physician: Yes Changes to H&P: No
--- NOTE | 2022-03-19 18:29 | SUR.OPER ---
Supine on Padded OR bed, head on pillow, safety belt at thigh, arms secured on padded arm boards at <90 degrees abduction. Bump under right buttock. Legs uncrossed with pillow under knees, gel pad to heels, tape over blanket to lower legs. Gel pad placed betweens patients posterior thigh and urinary catheter tubing.
--- NOTE | 2022-03-19 18:42 | SUR.OPER ---
Viable baby girl delivered at 1837. Placenta delivered, cord blood tubes X2 and placenta given to L&D RN.
--- NOTE | 2022-03-19 19:23 | P.PCN_ITS ---
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 My responsibilities included retracting and suctioning, providing fundal pressure during delivery and following with suture during closure. Please see the OB's note for details of the surgery.
[2022-03-19 19:40] VITALS: BP 128/82; PULSE 89; RESP 20; TEMP 36.9; O2SAT 100
[2022-03-19 19:45] VITALS: BP 120/78; PULSE 88; RESP 16; TEMP 36.9; O2SAT 99
--- NOTE | 2022-03-19 19:46 | P.OP_ITS ---
Operative Date/Time/Diagnoses Date of procedure: 03/19/22 Time of procedure: 18:10 Pre-op diagnosis: Intrauterine gestation, 37+1 weeks EGA Prior section Spontaneous rupture of membranes GBS positive status Preeclampsia w/o severe features Post-op diagnosis: same Procedure & Clinicians Procedure: Repeat section, low transverse cervical Same procedure as scheduled: Yes Indications: Mariella Lutz is a 26 year old admitted now at 37+3 for repeat section with SROM occurring earlier today.? course has been generally unremarkable with solid dating and appropriate milestones throughout.? GBS is positive. Surgeon: Lazaro Wills Duct Maker: Luann Zhang Reason for Duct Maker: Duct Maker required for the safe, effective, and timely completion of this surgery. Anesthesia Type: Spinal Operative Notes Findings: Viable female BW 3400 gms (7 lbs. 7.9 oz.), Apgars 5/6/8, delivered from the vertex presentation. Normal gravid anatomy. Closure Type: primary Specimen(s): cord blood Intraoperative meds administered: Ketorolac and Pitocin Applied: Catheter Estimated Blood Loss (mL): 800 Blood products transfused: none Procedure in detail: With her informed written consent, the patient was taken to the operating room and placed in the supine position for a repeat section procedure, for the indication(s) above. The abdomen was prepped and draped in the usual manner for section and a pre-surgical timeout was taken per [facility] OR protocol. Once effective anesthesia was confirmed, a 15 cm transverse Pfannenstiel incision was made in the skin and taken down through the subcutaneous tissues to the deep fascia. The deep fascia was incised transversely, the rectus abdominal eyes bluntly and sharply, and the peritoneal cavity entered without difficulty. The lower uterine segment was visualized and the position/presentation palpated. A transverse incision at or above the vesicouterine reflection was made with Metzenbaum scissors and transverse hysterotomy performed near the midline. Amniotomy revealed cleaar fluid. The incision was extended bilaterally with digital traction and the was delivered without difficulty from the vertex presentation. The infant was vigorous and cord clamping delayed for 60 seconds. The placenta was delivered intact using gentle cord traction and fundal massage.The uterine cavity was then cleared of any clot/debris first with a sloppy wet lap tape followed by a dry lap tape. Ring forceps were then applied to the angles and the midline of the incised CYNTHIA. A primary closure of the uterus was then accomplished with #1 CCGS in a running interlocking stitch followed by a 2nd layer of #1 CCGS in a running interlocking imbricating stitch. No additional sutures were required to achieve complete hemostasis. Once pelvic hemostasis was assured, the anterior peritoneum was closed with a running 2-0 Vicryl suture and the fascia closed with #1 Vicryl in a running stitch initiated at both angles and tying separately near the midline. The subcutaneous tissues were reapproximated with 2-0 plain catgut suture using inverted interrupted stitches. The skin edges were then brought together with 4-0 Monocryl in a subcuticular closure and the incision was reinforced with 1 Steri-Strips. An appropriate compression dressing was applied and the patient transferred to PACU for recovery and subsequent transfer to the Center for recuperation. Complications: none [place] Baby 1: Infant Gender: Female Presentation: vertex Position: Left Occiput Anterior Placental Delivery Description: Spontaneous and Expressed Cord Vessel Description: 3 Vessels score (1 min): 5 score (5 min): 6 score (10 min): 8 weight: 7 lb 7.931 oz Post-operative Condition: stable Disposition: PACU Aftercare: routine postop
[2022-03-19 19:50] VITALS: BP 120/78; PULSE 92; RESP 12; TEMP 36.9; O2SAT 99
[2022-03-19 19:56] VITALS: BP 118/74; PULSE 83; RESP 17; TEMP 36.8; O2SAT 99
[2022-03-19 20:09] VITALS: BP 119/79; PULSE 78; RESP 17; O2SAT 99
[2022-03-19] MEDS: ACETAMINOPHEN 325 MG TABLET 650 MG PO (21:45)
[2022-03-19] MEDS: KETOROLAC 30 MG/ML VIAL IV (21:45)
[2022-03-19] MEDS: LACTATED RINGERS 1,000 ML 100 ML IV (22:30)
[2022-03-19 23:15] LABS: Add Manual Diff / Slide Review NO; Basophils Absolute Auto 0 /uL (0-100); Basophils Percent Auto 0.2 % (0-2); Eosinophils Absolute Auto 0 /uL (0-450); Eosinophils Percent Auto 0.1 % (2-4); Hematocrit 24.6 % (36-46); Hemoglobin 7.8 g/dL (12.0-16.0); Lymphocytes Absolute Auto 1800 /uL (1100-4500); Lymphocytes Percent Auto 12.6 % (25-40); Mean Corpuscular HGB Conc 31.7 % (30-36); Mean Corpuscular Hemoglobin 24.8 PG (26-34); Mean Corpuscular Volume 78.2 fL (80-100); Monocytes Absolute Auto 700 /uL (0-900); Monocytes Percent Auto 4.7 % (3-14); Neutrophils Absolute Auto 12100 /uL (1500-7000); Neutrophils Percent Auto 82.4 % (50-75); Platelet Count 209 X10^3/uL (150-400); Red Blood Cell Count 3.15 X10^6/uL (4.0-5.2); Red Cell Distribution Width 17.5 % (11.6-14.8); White Blood Cell Count 14.6 X10^3/uL (4.5-11.0)
[2022-03-19] MEDS: CALCIUM CARBONATE 500 MG TAB PO (23:44)
[2022-03-20] MEDS: KETOROLAC 30 MG/ML VIAL IV ×3 (04:46→17:05)
[2022-03-20] MEDS: ACETAMINOPHEN 325 MG TABLET 650 MG PO ×4 (04:46→23:12)
[2022-03-20 06:46] LABS: Hematocrit 23.2 % (36-46); Hemoglobin 7.4 g/dL (12.0-16.0)
[2022-03-20 07:03] LABS: Alanine Aminotransferase 15 IU/L (<35); Albumin 2.3 g/dL (3.5-5.0); Albumin Globulin Ratio 0.8 (1.0-2.8); Alkaline Phosphatase 125 U/L (38-126); Aspartate Aminotransferase 26 IU/L (14-36); Bilirubin Total 1.3 mg/dL (0.2-1.3); Bilirubin Unconjugated 1.2 mg/dL (0.0-1.1); Globulin 2.8 g/dL (1.7-4.1); HEMOLYSIS < 15 (0-50); Total Protein 5.1 g/dL (6.3-8.2)
[2022-03-20] MEDS: PRENATAL VIT,CALC/IRON/FOLIC 1 TABLET 1 TAB PO (09:32)
[2022-03-20] MEDS: DOCUSATE 100 MG CAPSULE PO (09:32)
[2022-03-20 10:27] VITALS: BP 147/101
--- NOTE | 2022-03-20 13:26 | P.PNOB_ITS ---
Subjective - OB Subjective Patient comments: no complaints [place] baby status: NICU (Transferred to [facility]) Narrative: Patient had a uneventful 1st postop night. Pain is well controlled. She is not yet passed flatus but is tolerating regular diet and ambulating independently. Blood pressures since delivery have been in the normal range. Date Patient Seen: 03/20/22 Time Patient Seen: 07:40 Exam Vital Signs (past 8 hours): - 03/20/22 10:27 Blood Pressure 147/101 H Oxygen Delivery Method Room Air Const General: cooperative and comfortable Nutritional Appearance: average body habitus Orientation: alert and oriented x3 HENMT Head: normal to inspection, atraumatic and abrasion Ears: hearing grossly normal bilaterally Face and sinus: face symmetric Eyes General: appearance normal, both eyes and all related structures Conjunctivae: conjunctivae normal Sclera: sclerae normal EOM: EOM intact bilaterally Neck Neck: normal visual inspection Resp Effort & Inspection: normal respiratory effort and able to speak in complete sentences Auscultation: clear to auscultation bilaterally Cardio Rate: regular rate Rhythm: regular rhythm Heart Sounds: S1 normal, S2 normal and no murmurs GI Inspection: normal to inspection and incision (Surgical dressing clean and dry) Palpation: soft, no hepatosplenomegaly, mass (Mildly tender, firm fundus, U -3) and tender (Mild, diffuse postsurgical tenderness) External Female Exam: other (No significant bleeding noted) Extrem General: no calf tenderness Psych Appearance: grossly normal Mental Status: mental status grossly normal Speech and Movement: speech and movement normal Mood: congruent mood Affect: normal affect Attitude: cooperative Thought Process: normal Thought Content: normal Judgment: judgment good Objective Labs 03/20/22 06:31 03/19/22 15:44 Labs: Laboratory Results - last 24 hr 03/19/22 03/19/22 03/19/22 15:40 15:44 15:44 WBC 11.9 H RBC 4.34 Hgb 10.7 L Hct 34.1 L MCV 78.6 L MCH 24.7 L MCHC 31.5 RDW 17.4 H Plt Count 261 Neut % (Auto) 74.9 Lymph % (Auto) 17.8 L [place] % (Auto) 6.5 Eos % (Auto) 0.3 L Baso % (Auto) 0.5 Neut # (Auto) 8900 H Lymph # (Auto) 2100 [place] # (Auto) 800 Eos # (Auto) 0 Baso # (Auto) 100 BUN 6 L Creatinine 0.51 L Estimated GFR > 60 BUN/Creatinine Ratio 11.8 Uric Acid 3.7 Total Bilirubin Conjugated Bilirubin Unconjugated Bilirubin AST 26 ALT Alkaline Phosphatase Total Protein Albumin Globulin Albumin/Globulin Ratio U Random Total Protein 73 H Urine Creatinine 89.7 Protein/Creatinin Ratio 0.81 SARS-CoV-2 (PCR) Blood Type Antibody Screen 03/19/22 03/19/22 03/19/22 15:44 15:44 15:44 WBC Cancelled RBC Cancelled Hgb Cancelled Hct Cancelled MCV Cancelled MCH Cancelled MCHC Cancelled RDW Cancelled Plt Count Cancelled Neut % (Auto) Cancelled Lymph % (Auto) Cancelled [place] % (Auto) Cancelled Eos % (Auto) Cancelled Baso % (Auto) Cancelled Neut # (Auto) Cancelled Lymph # (Auto) Cancelled [place] # (Auto) Cancelled Eos # (Auto) Cancelled Baso # (Auto) Cancelled BUN Creatinine Estimated GFR BUN/Creatinine Ratio Uric Acid Total Bilirubin Conjugated Bilirubin Unconjugated Bilirubin AST ALT Alkaline Phosphatase Total Protein Albumin Globulin Albumin/Globulin Ratio U Random Total Protein Urine Creatinine Protein/Creatinin Ratio SARS-CoV-2 (PCR) Negative Blood Type A Positive Antibody Screen Negative 03/19/22 03/20/22 03/20/22 21:44 06:31 06:31 WBC 14.6 H RBC 3.15 L Hgb 7.8 L 7.4 L Hct 24.6 L 23.2 L MCV 78.2 L MCH 24.8 L MCHC 31.7 RDW 17.5 H Plt Count 209 Neut % (Auto) 82.4 H Lymph % (Auto) 12.6 L [place] % (Auto) 4.7 Eos % (Auto) 0.1 L Baso % (Auto) 0.2 Neut # (Auto) 12622 H Lymph # (Auto) 1800 [place] # (Auto) 700 Eos # (Auto) 0 Baso # (Auto) 0 BUN Creatinine Estimated GFR BUN/Creatinine Ratio Uric Acid Total Bilirubin 1.3 Conjugated Bilirubin 0.0 Unconjugated Bilirubin 1.2 H AST 26 ALT 15 Alkaline Phosphatase 125 D Total Protein 5.1 L Albumin 2.3 L Globulin 2.8 Albumin/Globulin Ratio 0.8 L U Random Total Protein Urine Creatinine Protein/Creatinin Ratio SARS-CoV-2 (PCR) Blood Type Antibody Screen Assessment & Plan Time Spent With Patient Time: Total time spent is greater than 50% in coordination of care (as documented) at patient's floor/unit and/or counseling patient: Time with patient: 15-24 minutes
[2022-03-20] MEDS: OXYCODONE IR 5 MG TABLET PO ×2 (14:14→20:24)
[2022-03-20] MEDS: IBUPROFEN 600 MG TABLET PO (23:12)
[2022-03-21] MEDS: OXYCODONE IR 5 MG TABLET PO ×3 (00:56→10:44)
[2022-03-21] MEDS: IBUPROFEN 600 MG TABLET PO ×2 (04:49→10:43)
[2022-03-21] MEDS: ACETAMINOPHEN 325 MG TABLET 650 MG PO ×2 (04:49→10:43)
[2022-03-21] MEDS: PRENATAL VIT,CALC/IRON/FOLIC 1 TABLET 1 TAB PO (09:27)
[2022-03-21] MEDS: DOCUSATE 100 MG CAPSULE PO (09:27)
--- NOTE | 2022-03-21 09:50 | P.DS_ITS ---
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 Patient also had elevated blood pressures upon presentation had an elevated protein to creatinine ratio that normal liver functions and platelet counts. AmniSure confirmed spontaneous rupture membranes and patient on the evening of 03/19/2022 underwent repeat section by low transverse cervical incision. Details of the procedure well summarized on my operative note of that date. Following delivery, the had to be transferred to NICU care at [facility] but is doing well and is likely be discharged from that facility later today. Following surgery the patient has done extremely well with prompt return of bowel and bladder function, she is ambulating independently, tolerating regular diet, and pain is well relief with oral pain medications. Blood pressures following delivery have all been in the normal range. She will be discharged at this time to home in an afebrile normotensive condition after counseling precautionary symptoms, limitations of activity, medications, and plans for follow-up which will be in 1 week. Medications at discharge will include continuation of her vitamins daily, oxycodone 5 mg every 6 h ours as needed for pain dispense 20, and ibuprofen 600 mg p.o. q.6 hours as needed pain dispense 30 with 2 refills. Peripartum Data Delivery Method: Section Laceration Description: None Episiotomy description: None complications: none [place] 1: Gender: Female Disposition of : NICU Discharge Diagnosis (1) delivery delivered: Status: Acute (2) Preeclampsia: Status: Acute Status at Discharge Cognitive/behavioral status at discharge: oriented Functional status at discharge: independent ambulation Overall status at discharge: patient is progressing back to baseline Time Spent with Patient Time attestation: Total time spent providing and/or coordinating discharge services: Time spent: Less than 30 minutes Objective Labs 03/20/22 06:31 03/19/22 15:44 Exam Vital Signs (past 8 hours): Oxygen Delivery Method Room Air Const General: cooperative and comfortable Nutritional Appearance: average body habitus Orientation: alert and oriented x3 HENMT Head: normal to inspection, atraumatic and abrasion Ears: hearing grossly normal bilaterally Face and sinus: face symmetric Eyes General: appearance normal, both eyes and all related structures Conjunctivae: conjunctivae normal Sclera: sclerae normal EOM: EOM intact bilaterally Neck Neck: normal visual inspection Resp Effort & Inspection: normal respiratory effort and able to speak in complete sentences Auscultation: clear to auscultation bilaterally Cardio Rate: regular rate Rhythm: regular rhythm Heart Sounds: S1 normal, S2 normal and no murmurs GI Inspection: normal to inspection and incision (Surgical dressing clean and dry) Palpation: soft, no hepatosplenomegaly, mass (Firm, mildly tender uterus, my for) and tender (Mild, diffuse postsurgical tenderness) External Female Exam: other (No significant bleeding noted) Extrem General: no calf tenderness Psych Appearance: grossly normal Mental Status: mental status grossly normal Speech and Movement: speech and movement normal Mood: congruent mood Affect: normal affect Attitude: cooperative Thought Process: normal Thought Content: normal Judgment: judgment good Discharge Plan Discharge Plan Patient Disposition: Home Provider Discharge Comment: Please review the written instructions you received when were discharged from hospital. Your follow-up appointment be scheduled 1 week after your and I look forward to seeing you then. If in the meanwhile however you have any concerns, problems, or questions, please contact me either through the office phone [phone], or via the patient portal. Discharge orders & Medications Prescriptions: New ibuprofen 600 mg Tablet 600 mg PO Q6H Qty: 30 2RF oxycodone 5 mg Tablet 5 mg PO Q4H PRN (Reason: Pain, Moderate (4-6)) Qty: 20 0RF Continued (DME) Double Electric breast Pump and Supplies See Rx Instructions .ROUTE .MEDSUPPLY Qty: 1 0RF Rx Instructions: As directed for 99 months. Follow up/Referrals: Provider,Minh SEE [Primary Care Provider] - Lazaro Wills MD [Physician] - Discharge Health Status Multidrug resistant organism: No MDRO Diet/Activity/Treatments Diet: Diet as Tolerated Activity: As tolerated Other treatments: [id number] Tylenol and/or ibuprofen may be used for additional pain relief. [id number] stool softeners and/or MiraLax may be used as needed for constipation Skin/Wound/Dressing Care Report to your healthcare provider any signs of infection, such as:: chills, fever, increased pain, unusual drainage and unusual redness Dressing: Dressing will be removed at the time of your 1 week postop visit Visit Report/Discharge Packet Instructions: DI for , DI for Prescription Opioid Use Stand Alone Forms: Discharge: Care Discharge Data Primary Care Provider: ProviderMinh
[2022-03-21 10:48] VITALS: BP 132/80; PULSE 75; RESP 17; TEMP 36.7
--- NOTE | 2022-03-23 08:46 | PC.NURSE ---
late entry, 1808 03/19/22 patient transferred to OR via w/c. SCDs and IV infusing well.
== END 2022-03-21 10:49 | disposition home or self-care (01) | DRG 788 ==
PROVIDERS: Admitting Provider Obstetrics & Gynecology; Referring Provider Obstetrics & Gynecology; Visit Provider Obstetrics & Gynecology
PROC: 10D00Z1 Extraction of Products of Conception, Low, Open Approach (ICD-10-PCS; CPT 59514; principal; 2022-03-19 17:45)
DX: O75.82 Onset (spontaneous) of labor after 37 completed weeks of gestation but before 39 completed weeks gestation, with delivery by (planned) cesarean section (principal); O34.211 Maternal care for low transverse scar from previous cesarean delivery; O14.04 Mild to moderate pre-eclampsia, complicating childbirth; Z3A.37 37 weeks gestation of pregnancy; Z37.0 Single live birth; O99.824 Streptococcus B carrier state complicating childbirth; Z20.822 Contact with and (suspected) exposure to COVID-19
CPT/HCPCS: 36415; 59025; 59050; 59510; 80076; 82570; 84112; 84156; 84450; 84550; 85014; 85018; 85025; 86850; 86900; 86901; 87635; C9803; G0378; G0379; J0690; J1885; J2274; J2405; J2590; J3010